=== PATIENT | male | born 1990 | race Caucasian/White ===

== ENCOUNTER 2020-12-16 19:25 | Emergency (ER) | payer MEDICAID ==
[~2020-12-16] VITALS: Ht 190.5 cm; Wt 102.2 kg
[2020-12-16] MEDS ORDERED: PRED20TA PO (20:59)
[2020-12-16] MEDS ORDERED: FAMO-128 PO (20:59)
[2020-12-16 21:35] VITALS: BP 155/81
== END 2020-12-16 21:36 | disposition home or self-care (01) ==
LOC: ER 19:25
DX: L50.9 Urticaria, unspecified (principal); Z79.899 Other long term (current) drug therapy
CPT/HCPCS: 99283

== ENCOUNTER 2022-11-22 15:27 | Emergency (ER) | payer MEDICAID ==
[~2022-11-22] VITALS: Ht 190.5 cm; Wt 93.0 kg
[~2022-11-22 15:27] MED LIST: FAMO-128 PO
[2022-11-22 15:32] VITALS: BP 149/87
== END 2022-11-22 17:17 | disposition home or self-care (01) ==
LOC: ER 15:28
DX: S00.03XA Contusion of scalp, initial encounter (principal); Z88.2 Allergy status to sulfonamides; W22.01XA Walked into wall, initial encounter; Y93.89 Activity, other specified; Y92.89 Other specified places as the place of occurrence of the external cause; Y99.8 Other external cause status
CPT/HCPCS: 99282